=== PATIENT | male | born 1965 | race African-American/Black ===

== ENCOUNTER 2022-12-30 06:46 | Inpatient (IN) | payer BC ==
[~2022-12-30] VITALS: Ht 172.7 cm; Wt 77.8 kg
[2022-12-30 09:42] LABS: PROTHROMBIN TIME 10.5 sec (9.6-11.0)
[2022-12-30 09:45] LABS: CHLORIDE 110 mEq/L (98-107); INDEX HEMOLYSI 1 (1-3); INDEX ICTERIC 1 (1-4); INDEX LIPEMIC 1 (1-3); POTASSIUM 4.1 mEq/L (3.5-5.1); SODIUM 139 mEq/L (136-145)
[2022-12-30 09:56] LABS: ALANINE AMINOTRANSFERASE 33 IU/L (13-61); ALBUMIN 3.8 g/dL (3.4-5.0); ASPARTATE AMINOTRANSFERASE 24 IU/L (15-37); BILIRUBIN TOTAL 1.5 mg/dL (0.1-1.0); CALCIUM 8.9 mg/dL (8.5-10.1); CARBON DIOXIDE 26 mEq/L (21-32); GLUCOSE 108 mg/dL (70-105); NT PRO B-TYPE NATRIURETIC PEP 200 pg/mL (5-125); PROTEIN TOTAL 7.1 g/dL (6.0-8.3); UREA NITROGEN BLOOD 21 mg/dL (7-21)
[2022-12-30 10:01] LABS: BASOPHILS % 0.3 % (0.0-2.0); EOSINOPHILS % 1.2 % (0.0-5.0); HEMATOCRIT. 42.7 % (42.0-52.0); HEMOGLOBIN. 14.1 g/dL (14.0-18.0); LYMPHOCYTES % 29.9 % (20.0-50.0); MEAN CORPUSCULAR HEMOGLOBIN 28.8 pg (28.0-32.0); MEAN CORPUSCULAR HGB CONC 33.1 g/dL (31.0-37.0); MEAN CORPUSCULAR VOLUME 87.1 fL (80.0-94.0); MEAN PLATELET VOLUME 8.4 fl (7.4-10.4); MONOCYTES % 11.3 % (2.0-8.0); NEUTROPHILS % 57.3 % (40.0-76.0); PLATELET 244 x1000/uL (130-400); RED CELL DISTRIBUTION WIDTH 14.7 % (11.6-14.6); WHITE BLOOD COUNT 6.8 x1000/uL (4.5-11.0)
[2022-12-30 10:20] LABS: TROPONIN I HIGH SENSITIVITY 272 ng/L (<78)
[2022-12-30] MEDS ORDERED: ASPIRIN 81MG TABLET PO ONE (10:45)
[2022-12-30 13:52] LABS: TROPONIN I HIGH SENSITIVITY 381 ng/L (<78)
[2022-12-30] MEDS ORDERED: ASPIRIN 81MG TABLET PO SCH (15:45)
[2022-12-30] MEDS ORDERED: ONDANSETRON HCL 4MG/2ML INJ IV PRN (15:45)
[2022-12-30] MEDS ORDERED: DOCUSATE SODIUM 100MG CAPSULE PO PRN (15:45)
[2022-12-30] MEDS ORDERED: HEPARIN 5000 UNITS/ML VIAL IV PRN ×2 (15:45)
[2022-12-30] MEDS ORDERED: HEPARIN 5000 UNITS/ML VIAL IV SCH (15:45)
[2022-12-30] MEDS ORDERED: ACETAMINOPHEN 325MG TABLET PO PRN (15:45)
[2022-12-30] MEDS ORDERED: IPRATROPIUM/ALBUTEROL 0.5-3(2.5)MG/3ML NEB HHN PRN (16:05)
[2022-12-30 17:19] LABS: BG BASE EXCESS 0.6 mmol/L (-2.0-2.0); BG CARBOXYHEMOGLOBIN 0.5 % (0.5-1.5); BG DEOXYHEMOGLOBIN 3.9 % (0.0-5.0); BG FRACTION INSPIRED OXYGEN 21; BG HCO3 ACT 25.3 mmol/L (22.0-26.0); BG METHEMOGLOBIN 0.1 % (0.0-1.5); BG OXYGEN SATURATION 96.1 % (92.0-98.5); BG OXYHEMOGLOBIN 95.5 % (94.0-97.0); BG PCO2 40.8 mmHg (35.0-45.0); BG PO2 81.9 mmHg (75.0-100.0); BG SAMPLE SITE RIGHT RADIAL; BG TOTAL HEMOGLOBIN 15.9 g/dL (12.0-18.0); BG VENT MODE ROOM AIR
[2022-12-30] MEDS ORDERED: HEPARIN 5000 UNITS/ML VIAL IV NR (17:59)
[2022-12-30] MEDS: NITROGLYCERIN OINT 1GM/INCH UDPKT TD SCH (18:44)
[2022-12-30] MEDS: HEPARIN 25,000 UNITS PREMIX 250 ML IV PRN (19:05)
[2022-12-30 20:00] VITALS: BP 113/89; PULSE 70; RESP 20; TEMP 97.3
[2022-12-30] MEDS: ACETAMINOPHEN 325MG TABLET PO PRN (20:16)
[2022-12-30 21:36] LABS: HEPATITIS B SURFACE ANTIGEN NEGATIVE
[2022-12-30 22:04] LABS: HEPATITIS C VIR.AB 0.07 INDEXVAL (0.00-0.80)
[2022-12-30 23:53] LABS: CREATINE KINASE MB FRACTION 6.6 ng/mL (0.5-3.6)
[2022-12-31] VITALS: BP 107/65; PULSE 63; RESP 18; TEMP 97.7
[2022-12-31] MEDS ORDERED: HEPARIN 5000 UNITS/ML VIAL IV PRN ×2
[2022-12-31] MEDS: ATORVASTATIN CALCIUM 20MG TABLET PO SCH ×2 (00:12→20:35)
[2022-12-31] MEDS: NITROGLYCERIN OINT 1GM/INCH UDPKT TD SCH ×3 (01:50→18:29)
[2022-12-31 02:08] LABS: CLARITY URINE CLEAR (CLEAR); COLOR URINE YELLOW (YELLOW); GLUCOSE URINE NEGATIVE (NEGATIVE); KETONES URINE NEGATIVE (NEGATIVE); LEUKOCYTE ESTERASE URINE NEGATIVE (NEGATIVE); NITRITE URINE NEGATIVE (NEGATIVE); OCCULT BLOOD URINE NEGATIVE (NEGATIVE); PROTEIN URINE NEGATIVE (NEGATIVE); SPECIFIC GRAVITY URINE 1.018 (1.005-1.030)
[2022-12-31 02:20] LABS: *AMPHETAMINES SCREEN URINE NEGATIVE (NEGATIVE); *BARBITURATES SCREEN URINE NEGATIVE (NEGATIVE); *BENZODIAZEPINES SCREEN URINE NEGATIVE (NEGATIVE); *COCAINE SCREEN URINE NEGATIVE (NEGATIVE); CANNABINOID URINE SCREEN PRESUMTIVE POSITIVE (NEGATIVE); ECSTASY MDMA SCREEN URINE NEGATIVE (NEGATIVE); METHADONE URINE SCREEN NEGATIVE (NEGATIVE); OPIATES URINE SCREEN NEGATIVE (NEGATIVE); PHENCYCLIDINE URINE SCREEN NEGATIVE (NEGATIVE)
[2022-12-31 04:00] VITALS: BP 115/72; PULSE 55; RESP 20; TEMP 97.3
[2022-12-31 08:00] VITALS: BP 116/76; PULSE 73; RESP 20; TEMP 97
[2022-12-31 08:14] LABS: D-DIMER < 0.19 mg/L FEU (<0.50); PARTIAL THROMBOPLASTIN TIME 68.9 sec (23.4-31.0)
[2022-12-31 08:44] LABS: THYROID STIMULATING HORMONE 0.74 uIU/mL (0.36-3.74)
[2022-12-31] MEDS: METOPROLOL TARTRATE 25MG TABLET PO SCH ×2 (08:47→20:36)
[2022-12-31] MEDS ORDERED: INFLUENZA VACCINE 05/PF 0.5 ML SYRINGE IM ONE (09:00)
[2022-12-31] MEDS ORDERED: ASPIRIN 81MG TABLET PO SCH (09:00)
[2022-12-31] MEDS: LOSARTAN 25 MG TABLET PO SCH ×2 (09:15→20:36)
[2022-12-31] MEDS: ASPIRIN 325MG EC TABLET PO SCH (10:03)
[2022-12-31 11:02] LABS: BASOPHILS % 0.2 % (0.0-2.0); EOSINOPHILS % 1.9 % (0.0-5.0); HEMATOCRIT. 42.7 % (42.0-52.0); HEMOGLOBIN. 13.9 g/dL (14.0-18.0); LYMPHOCYTES % 40.5 % (20.0-50.0); MEAN CORPUSCULAR HEMOGLOBIN 28.6 pg (28.0-32.0); MEAN CORPUSCULAR HGB CONC 32.6 g/dL (31.0-37.0); MEAN CORPUSCULAR VOLUME 87.8 fL (80.0-94.0); MEAN PLATELET VOLUME 9.4 fl (7.4-10.4); MONOCYTES % 11.6 % (2.0-8.0); NEUTROPHILS % 45.8 % (40.0-76.0); PLATELET 221 x1000/uL (130-400); RED BLOOD CELL COUNT 4.87 mill/uL (4.7-6.1); RED CELL DISTRIBUTION WIDTH 14.8 % (11.6-14.6); WHITE BLOOD COUNT 4.9 x1000/uL (4.5-11.0)
[2022-12-31 11:15] LABS: CHLORIDE 110 mEq/L (98-107); INDEX HEMOLYSI 2 (1-3); INDEX ICTERIC 1 (1-4); INDEX LIPEMIC 1 (1-3); SODIUM 141 mEq/L (136-145)
[2022-12-31 11:22] LABS: CALCIUM 8.7 mg/dL (8.5-10.1); CARBON DIOXIDE 23 mEq/L (21-32); GLUCOSE 91 mg/dL (70-105); UREA NITROGEN BLOOD 17 mg/dL (7-21)
[2022-12-31 12:00] VITALS: BP 114/75; PULSE 56; RESP 20; TEMP 97.4
[2022-12-31 16:00] VITALS: BP 117/73; PULSE 66; RESP 20; TEMP 97
[2022-12-31] MEDS: ACETAMINOPHEN 325MG TABLET PO PRN (19:28)
[2022-12-31] MEDS: HEPARIN 25,000 UNITS PREMIX 250 ML IV PRN (19:48)
[2022-12-31] MEDS ORDERED: MELO-106 PO (19:56)
[2022-12-31] MEDS ORDERED: ERGO1250 PO (19:56)
[2022-12-31] MEDS ORDERED: DYZ PO (19:56)
[2022-12-31 20:00] VITALS: BP 134/85; PULSE 63; RESP 20; TEMP 97.4
[2022-12-31] MEDS ORDERED: NALOXONE HCL 0.4MG/ML VIAL IV PRN (23:15)
[2022-12-31] MEDS ORDERED: HYDROCODONE/ACETAMINOPHEN 5/325MG TABLET PO PRN (23:15)
[2023-01-01] VITALS: BP 148/92; PULSE 70; RESP 20; TEMP 97.1
[2023-01-01 04:00] VITALS: BP 145/93; PULSE 70; RESP 20; TEMP 97.1
[2023-01-01 05:24] LABS: BASOPHILS % 0.1 % (0.0-2.0); EOSINOPHILS % 0.3 % (0.0-5.0); HEMOGLOBIN. 14.9 g/dL (14.0-18.0); LYMPHOCYTES % 23.3 % (20.0-50.0); MEAN CORPUSCULAR HEMOGLOBIN 29.2 pg (28.0-32.0); MEAN CORPUSCULAR HGB CONC 33.2 g/dL (31.0-37.0); MEAN CORPUSCULAR VOLUME 87.9 fL (80.0-94.0); MEAN PLATELET VOLUME 8.3 fl (7.4-10.4); MONOCYTES % 9.1 % (2.0-8.0); NEUTROPHILS % 67.2 % (40.0-76.0); PLATELET 244 x1000/uL (130-400); RED BLOOD CELL COUNT 5.12 mill/uL (4.7-6.1); RED CELL DISTRIBUTION WIDTH 14.3 % (11.6-14.6); WHITE BLOOD COUNT 6.9 x1000/uL (4.5-11.0)
[2023-01-01 05:36] LABS: CHLORIDE 106 mEq/L (98-107); INDEX HEMOLYSI 1 (1-3); INDEX ICTERIC 1 (1-4); INDEX LIPEMIC 1 (1-3); SODIUM 137 mEq/L (136-145)
[2023-01-01 05:51] LABS: ALANINE AMINOTRANSFERASE 26 IU/L (13-61); ALBUMIN 3.8 g/dL (3.4-5.0); ASPARTATE AMINOTRANSFERASE 17 IU/L (15-37); BILIRUBIN TOTAL 1.9 mg/dL (0.1-1.0); CALCIUM 8.8 mg/dL (8.5-10.1); CARBON DIOXIDE 26 mEq/L (21-32); GLUCOSE 126 mg/dL (70-105); PROTEIN TOTAL 7.2 g/dL (6.0-8.3); THYROID STIMULATING HORMONE 0.82 uIU/mL (0.36-3.74); UREA NITROGEN BLOOD 16 mg/dL (7-21)
[2023-01-01 06:00] VITALS: BP 150/97; PULSE 64; RESP 20; TEMP 97.1
[2023-01-01 06:00] LABS: TROPONIN I HIGH SENSITIVITY 368 ng/L (<78)
[2023-01-01] MEDS ORDERED: SODIUM CHLORIDE 0.45% 1,000 ML IV ONE ×2 (08:15→13:45)
[2023-01-01] MEDS: ASPIRIN 325MG EC TABLET PO SCH ×2 (08:29→09:00)
[2023-01-01] MEDS: METOPROLOL TARTRATE 25MG TABLET PO SCH ×2 (08:56→21:21)
[2023-01-01] MEDS: LOSARTAN 25 MG TABLET PO SCH ×2 (08:56→21:21)
[2023-01-01] MEDS: AMLODIPINE 5MG TABLET PO SCH ×3 (08:56→09:00)
[2023-01-01] MEDS ORDERED: IODIXANOL 320MG/ML 100 ML BOTTLE IV ONE ×2 (12:36→13:17)
[2023-01-01] MEDS ORDERED: HEPARIN 1000 UNITS/ML 10ML ONE (12:36)
[2023-01-01] MEDS ORDERED: MIDAZOLAM HCL 2 MG/2 ML VIAL ONE (12:36)
[2023-01-01] MEDS ORDERED: FENTANYL CITRATE/PF 50MCG/ML 2ML VIAL ONE (12:36)
[2023-01-01] MEDS ORDERED: LIDOCAINE HCL 1% 20ML VIAL (Pyxis) INJ ONE (12:37)
[2023-01-01] MEDS ORDERED: ASPIRIN/SOD BICARB/CITRIC ACID 324MG TAB EFF ONE (13:09)
[2023-01-01] MEDS ORDERED: CLOPIDOGREL 75MG TABLET ONE (13:09)
[2023-01-01] MEDS ORDERED: ONDANSETRON HCL 4MG/2ML INJ IV PRN (13:45)
[2023-01-01] MEDS ORDERED: MORPHINE SULFATE 2 MG/ML CPJ (NOT FOR IM USE) IV PRN (13:45)
[2023-01-01] MEDS ORDERED: ACETAMINOPHEN 325MG TABLET PO PRN (13:45)
[2023-01-01] MEDS ORDERED: ATROPINE SULFATE 1MG/10ML SYR IV PRN (13:45)
[2023-01-01] MEDS ORDERED: CLOPIDOGREL 75MG TABLET PO NR (13:45)
[2023-01-01 14:30] VITALS: BP 133/95; PULSE 58; RESP 13; TEMP 97.6
[2023-01-01 15:00] VITALS: BP 148/84; PULSE 63; RESP 14
[2023-01-01 20:00] VITALS: BP 111/95; PULSE 67; RESP 16; TEMP 97.6
[2023-01-01] MEDS ORDERED: ATORVASTATIN CALCIUM 40MG TABLET PO SCH (21:00)
[2023-01-02] VITALS: BP 135/89; PULSE 54; RESP 20; TEMP 97.8
[2023-01-02 04:00] VITALS: BP 128/88; PULSE 63; RESP 18; TEMP 98
[2023-01-02 06:33] LABS: BASOPHILS % 0.2 % (0.0-2.0); EOSINOPHILS % 1.7 % (0.0-5.0); HEMATOCRIT. 46.6 % (42.0-52.0); HEMOGLOBIN. 15.2 g/dL (14.0-18.0); LYMPHOCYTES % 31.4 % (20.0-50.0); MEAN CORPUSCULAR HEMOGLOBIN 28.9 pg (28.0-32.0); MEAN CORPUSCULAR HGB CONC 32.7 g/dL (31.0-37.0); MEAN CORPUSCULAR VOLUME 88.3 fL (80.0-94.0); MEAN PLATELET VOLUME 8.6 fl (7.4-10.4); MONOCYTES % 10.8 % (2.0-8.0); NEUTROPHILS % 55.9 % (40.0-76.0); PLATELET 251 x1000/uL (130-400); RED BLOOD CELL COUNT 5.28 mill/uL (4.7-6.1); RED CELL DISTRIBUTION WIDTH 14.8 % (11.6-14.6); WHITE BLOOD COUNT 6.5 x1000/uL (4.5-11.0)
[2023-01-02 07:31] LABS: CHLORIDE 110 mEq/L (98-107); POTASSIUM 4.9 mEq/L (3.5-5.1); SODIUM 138 mEq/L (136-145)
[2023-01-02 07:37] LABS: CARBON DIOXIDE 22 mEq/L (21-32); GLUCOSE 91 mg/dL (70-105); UREA NITROGEN BLOOD 16 mg/dL (7-21)
[2023-01-02 08:00] VITALS: BP 128/88; PULSE 59; RESP 18; TEMP 99
[2023-01-02] MEDS ORDERED: CLOPIDOGREL 75MG TABLET PO SCH (09:00)
[2023-01-02] MEDS ORDERED: ASPIRIN 81MG EC TABLET PO SCH (09:00)
[2023-01-02] MEDS: LOSARTAN 25 MG TABLET PO SCH (09:52)
[2023-01-02] MEDS: METOPROLOL TARTRATE 25MG TABLET PO SCH (09:52)
[2023-01-02] MEDS: AMLODIPINE 5MG TABLET PO SCH (10:06)
[2023-01-02] MEDS ORDERED: MAGNESIUM 1 G PREMIX 100 ML IV NR (11:00)
[2023-01-02 13:47] VITALS: BP 140/94; PULSE 74; TEMP 98.7; O2SAT 95
== END 2023-01-02 14:48 | disposition home or self-care (01) | DRG 322 ==
LOC: ER 06:46 → 8WST 14:39 → EDBEDREQ 15:03 → 5EST 12-31 22:59 → 3WST 01-01 14:40
PROVIDERS: ADMIT Internal Medicine; ATTEND Internal Medicine
PROC: 027035Z Dilation of Coronary Artery, One Artery with Two Drug-eluting Intraluminal Devices, Percutaneous Approach (ICD-10-PCS; principal; 2023-01-01)
PROC: 4A023N7 Measurement of Cardiac Sampling and Pressure, Left Heart, Percutaneous Approach (ICD-10-PCS; 2023-01-01)
PROC: B211YZZ Fluoroscopy of Multiple Coronary Arteries using Other Contrast (ICD-10-PCS; 2023-01-01)
DX: I21.4 Non-ST elevation (NSTEMI) myocardial infarction (principal); J45.909 Unspecified asthma, uncomplicated; E78.00 Pure hypercholesterolemia, unspecified; I11.9 Hypertensive heart disease without heart failure; I25.10 Atherosclerotic heart disease of native coronary artery without angina pectoris; F12.90 Cannabis use, unspecified, uncomplicated; E78.5 Hyperlipidemia, unspecified; I49.3 Ventricular premature depolarization; Z79.899 Other long term (current) drug therapy; Z82.49 Family history of ischemic heart disease and other diseases of the circulatory system
CPT/HCPCS: 36415; 36600; 71045; 80048; 80053; 80061; 80305; 81003; 82375; 82550; 82553; 82805; 83735; 83880; 84443; 84484; 85025; 85347; 85379; 86803; 87340; 92928; 93005; 93306; 93458; 99291; C1769; C1874; C1887; C1893; J1644; J2250; J3010; J3475; J3490; Q9967